=== PATIENT | female | born 1995 | race Caucasian/White ===

== ENCOUNTER 2017-07-01 18:26 | Emergency (ER) | payer BC ==
[2017-07-01 18:54] VITALS: RESP 14; TEMP 97.7
--- NOTE | 2017-07-01 20:01 | EDPHY ---
H & P Time Seen by Provider: 07/01/17 20:01 HPI/ROS: Chief complaint. Finger laceration HPI. 21-year-old female presents emergency department with laceration to the left index finger. She was trying to open a bag with the knife and cut her finger. This occurred just prior to arrival. She is right handed. No other injuries. No sense of retained foreign body ROS Constitutional. no fever/chills, no weakness Eyes. no problems with vision ENT. no sore throat, no nasal drainage Cardiovascular. no chest pain Respiratory. no shortness of breath, no cough Abdominal. no abdominal pain, no nausea/vomiting, no diarrhea . no problems urinating MS. no calf pain/swelling, no neck/back pain, no joint pain Skin. Left index finger laceration Lymph. no swollen glands Neuro. no headache, no dizziness, no difficulty walking or with speech Past Medical/Surgical History: Healthy Social History: Single, nonsmoker, no alcohol Smoking Status: Never smoked Physical Exam: General Appearance: Alert well-developed female mild distress vital signs stable Eyes: Pupils equal and round no pallor or injection. ENT, Mouth: Mucous membranes are moist. Respiratory: There are no retractions, lungs are clear to auscultation. Cardiovascular: Regular rate and rhythm. Gastrointestinal: Abdomen is soft and nontender, no masses, bowel sounds normal. Neurological: Awake and alert, sensory and motor exams grossly normal. Skin: 2 cm laceration to the left index finger just distal to the D IP joint Musculoskeletal: Neck is supple nontender. Extremities symmetrical, full range of motion. Psychiatric: Patient is oriented X 3, there is no agitation. Constitutional: Initial Vital Signs Temperature (C) 36.5 C 07/01/17 18:51 Heart Rate 98 07/01/17 18:51 Respiratory Rate 14 07/01/17 18:51 Blood Pressure 119/75 07/01/17 18:51 O2 Sat (%) 96 07/01/17 18:51 Allergies/Adverse Reactions: erythromycin Allergy (Mild, Uncoded 03/22/13 18:51) Rash Home Medications: Medication Instructions Recorded Control Pill 03/22/13 Medical Decision Making Procedures: Procedure: Laceration repair. Verbal consent was obtained from the patient. The 2 cm laceration on the left index finger was anesthetized in the usual fashion. The wound was irrigated, draped and explored to its base with a gloved finger. There were no deep structures involved. No tendon injury was identified. The wound was repaired with four 5-0 Prolene suture. The wound repair was simple. The procedure was performed by myself. ED Course/Re-evaluation: Patient remained stable. She and I discussed treatment plan including criteria for return importance of follow-up further evaluation. She expresses understanding and agreement Differential Diagnosis: I considered retained foreign body, infection potential of wound Departure - Departure Disposition: Home, Routine, Self-Care Clinical Impression: Finger laceration Qualifiers: Encounter type: initial encounter Finger: index finger Damage to nail status: with damage Foreign body presence: without foreign body Laterality: left Qualified Code(s): S61.311A - Laceration without foreign body of left index finger with damage to nail, initial encounter Condition: Good Instructions: Care For Your Stitches (ED) Additional Instructions: Keep cut clean and dry. You may shower and wash your hands with stitches in. Return for signs of infection. Stitches out 10 days Referrals: UNKNOWN,DOCTOR [Other] - As per Instructions
[2017-07-01 20:49] VITALS: BP 115/90; PULSE 97; O2SAT 97
== END 2017-07-01 20:45 | disposition home or self-care (01) ==
PROC: 0HQGXZZ Repair Left Hand Skin, External Approach (ICD-10-PCS; principal; 2017-07-01)
DX: S61.311A Laceration without foreign body of left index finger with damage to nail, initial encounter (principal); W26.0XXA Contact with knife, initial encounter; Y99.8 Other external cause status; Y93.89 Activity, other specified